=== PATIENT | male | born 1995 | race Caucasian/White ===

== ENCOUNTER 2020-09-23 10:56 | Emergency (ER) | payer OTHER ==
[2020-09-23] MEDS ORDERED: methylPREDNISolone Acetate 40 mg/ml Vial ONE (11:18)
== END 2020-09-23 12:12 | disposition home or self-care (01) ==
LOC: NAV ERS 10:56
DX: T63.441A Toxic effect of venom of bees, accidental (unintentional), initial encounter (principal)
CPT/HCPCS: 96372; 99282; J2920